=== PATIENT | male | born 1980 | race Caucasian/White ===

== ENCOUNTER 2020-12-02 15:47 | Emergency (ER) | payer OTHER ==
[2020-12-02 16:06] LABS: BASOPHIL 0.7 % (0-2); EOSINOPHIL 1.7 % (0-5); HGB 16.8 g/dl (13.2-18.0); LYMPHOCYTE 19.5 % (15-48); MCH 31.3 pg (25.0-31.0); MCHC 35.7 g/dL (32.0-36.0); MCV 87.5 fL (78.0-100.0); MONOCYTE 8.8 % (0-12); MPV 9.9 fL (6.0-9.5); NEUTROPHIL 69.1 % (41-80); NRBC 0; PLT 245 K/uL (150-400); RBC 5.37 M/uL (4.70-6.00); RDW 12.3 % (11.5-14.0); WBC 8.6 K/uL (4.0-10.5)
[2020-12-02 16:16] LABS: PROTHROMBIN TIME 12.5 SECONDS (11.4-13.6); PTT 27.3 SECONDS (22.2-34.7)
[2020-12-02 16:33] LABS: PRO-BNP 58 pg/mL (<125)
[2020-12-02 16:36] LABS: ALKALINE PHOSHATASE 127 U/L (46-116); ALT 86 U/L (16-63); AST 62 U/L (15-37); BUN 13 mg/dL (7-18); BUN/CREAT RATIO (CALC) 16.7 RATIO; CHLORIDE 103 mmol/L (98-107); CO2 (BICARBONATE) 27 mmol/L (21-32); CREATININE 0.78 mg/dL (0.67-1.17); GLOBULIN (CALCULATION) 3.8 g/dL; GLUCOSE 137 mg/dL (74-106); MAGNESIUM 1.7 mg/dL (1.8-2.4); POTASSIUM 3.8 mmol/L (3.5-5.1); TOTAL PROTEIN 7.8 g/dL (6.4-8.2)
== END 2020-12-02 18:14 | disposition home or self-care (01) ==
LOC: FER 15:47
PROVIDERS: Emergency Medicine
DX: I48.0 Paroxysmal atrial fibrillation (principal); E78.5 Hyperlipidemia, unspecified; Z79.82 Long term (current) use of aspirin; Z79.899 Other long term (current) drug therapy; Z20.822 Contact with and (suspected) exposure to COVID-19
CPT/HCPCS: 36415; 71045; 80053; 80162; 83735; 83880; 84443; 84484; 85025; 85610; 85730; 93005; G0480; U0002